=== PATIENT | female | born 1970 | race Caucasian/White ===

== ENCOUNTER 2021-07-04 17:30 | Emergency (ER) | payer SELFPAY ==
--- OUTSIDE RECORDS SUMMARY | 2021-07-04 17:32 | XMS REPORT | Continuity of Care Document ---
:1970 Author Organization [facility] t Address [address] [place] [address] [place] [id number] Care Team Providers Name Role Phone KRYSTIAN Attending Clinician Unavailable LAURA Attending Clinician Unavailable Problems This patient has no known problems. Allergies, Adverse Reactions, Alerts This patient has no known allergies or adverse reactions. Medications This patient has no known medications. Procedures This patient has no known procedures. Encounters Start End Encounter Admission Attending Care Care Encounter Source Date/Time Date/Time Type Type Clinicians Facility Department ID 2019-12-04 2019-12-05 Emergency DAVID BOLAND [facility] [id number] [place] 00:00:00 00:00:[address] 2019-11-23 2019-11-23 [id number] [place] 00:00:00 00:00:00 FRANCINE Mcnulty [facility] Results This patient has no known results.
[2021-07-04 19:05] LABS: SARS-COV-2 RT PCR NEGATIVE (NEGATIVE)
--- NOTE | 2021-07-04 19:45 | ER ---
Nurse's Notes [facility] Name: Martina Coello Age: 50 yrs Sex: Female : 1970 Arrival Date: 07/04/2021 Time: 17:31 Bed 12 Private MD: Diagnosis: Acute pharyngitis, unspecified Presentation: 07/04 17:52 Chief complaint: Patient states: Sinus congestion, cough, fever, sinus pressure and ww headache. Coronavirus screen: Vaccine status: Patient reports being unvaccinated. Client denies travel out of the [place] in the last 14 days. Ebola Screen: Patient denies travel to an Ebola-affected area in the 21 days before illness onset. Initial Sepsis Screen: Does the patient meet any 2 criteria? No. Patient's initial sepsis screen is negative. Does the patient have a suspected source of infection? No. Patient's initial sepsis screen is negative. Risk Assessment: Do you want to hurt yourself or someone else? Patient reports no desire to harm self or others. Onset of symptoms is unknown. 17:52 Method Of Arrival: Ambulatory ww 17:52 Acuity: MIKE 4 ww Triage Assessment: 17:54 Headache History: Denies prior headaches. General: Appears in no apparent distress. ww Behavior is calm, cooperative. Pain: Complains of pain in face and scalp Pain currently is 8 out of 10 on a pain scale. Pain began gradually, Also complains of nausea. EENT: Reports nasal congestion nasal discharge. Neuro: Level of Consciousness is awake, alert, obeys commands, Oriented to person, place, time, situation, Speech is normal. Cardiovascular: Capillary refill Patient's skin is warm and dry. Respiratory: Airway is patent Respiratory effort is even, unlabored, Respiratory pattern is regular, symmetrical. Derm: Skin is healthy with good turgor. 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 - Social history:: Smoking status: Patient reports the use of cigarette tobacco products, smokes one pack cigarettes per day. Screenin:57 Abuse screen: Denies threats or abuse. Denies injuries from another. Nutritional ww screening: No deficits noted. Tuberculosis screening: No symptoms or risk factors identified. Fall Risk None identified. Assessment: 18:09 General: Appears in no apparent distress. comfortable, Behavior is calm, cooperative, ld1 appropriate for age. Pain: Denies pain. Neuro: Level of Consciousness is awake, alert, obeys commands, Oriented to person, place, time, situation. Cardiovascular: No deficits noted. Respiratory: Airway is patent Respiratory effort is even, unlabored. GI: Abdomen is flat, non-distended. : No signs and/or symptoms were reported regarding the genitourinary system. EENT: No signs and/or symptoms were reported regarding the EENT system. Derm: No signs and/or symptoms reported regarding the dermatologic system. Musculoskeletal: No signs and/or symptoms reported regarding the musculoskeletal system. Vital Signs: 17:52 BP 126 / 93; Pulse 84; Resp 20; Temp 98.8(O); Pulse Ox 97% ; Weight 113.4 kg; Height 5 ww ft. 8 in. (172.72 cm); Pain 8/10; 18:09 BP 129 / 86; Pulse 79; Resp 18; Pulse Ox 98% on R/A; Pain 0/10; ld1 17:52 Body Mass Index 38.01 (113.40 kg, 172.72 cm) ww ED Course: 17:31 Patient arrived in ED. mr 17:54 Triage completed. ww 17:54 Arm band placed on right wrist. ww 18:06 Jian Yanes NP is PHCP. pm1 18:06 Shar Leija MD is Attending Physician. pm1 18:09 Jessica Parks, SOO is Primary Nurse. ld1 18:09 Patient has correct armband on for positive identification. Placed in gown. Bed in low ld1 position. Call light in reach. Side rails up X2. special systems technician on. Pulse ox on. NIBP on. Door closed. Noise minimized. Warm blanket given. 18:09 No provider procedures requiring assistance completed. ld1 18:10 COVID-19/FLU A+B (Document "Date of Onset" if Symptomatic) Sent. ld1 19:55 Patient did not have IV access during this emergency room visit. ld1 Administered Medications: 19:54 Drug: Decadron (dexamethasone) 10 mg Route: IM; Site: right deltoid; ld1 19:55 Drug: Tussionex Pennkinetic ER (chlorpheniramine-hydrocodone) Suspension 5 ml Route: PO;ld1 Outcome: 19:44 Discharge ordered by MD. pm1 19:55 Discharged to home ambulatory. ld1 19:55 Condition: stable 19:55 Discharge instructions given to patient, Instructed on discharge instructions, follow up and referral plans. Demonstrated understanding of instructions, follow-up care, medications, Prescriptions given X 3. 19:55 Patient left the ED. ld1 Signatures: Bethanie Martin mr FarzanaJian, CARBON PLANT GRINDER CARBON PLANT GRINDER pm1 Jessica Parks RN RN ld1 Stephanie Day RN RN ww
--- NOTE | 2021-07-04 19:45 | EDPHYS ---
Physician Documentation [facility] Name: Martina Coello Age: 50 yrs Sex: Female : 1970 Arrival Date: 07/04/2021 Time: 17:31 Bed 12 Private MD: ED Physician Shar Leija HPI: 07/04 19:43 This 50 yrs old Female presents to ER via Ambulatory with complaints of Sore throat, pm1 Sinus Congestion, Headache, Fever, Breathing Difficulty. 19:43 The patient presents with sore throat. The patient describes throat pain as raw, pm1 scratchy. Onset: The symptoms/episode began/occurred 3 day(s) ago. Severity of symptoms: in the emergency department the symptoms are actually worse. Modifying factors: The symptoms are alleviated by nothing, the symptoms are aggravated by swallowing, Patient's oral intake status: good unaware of sick contact. Associated signs and symptoms: Pertinent positives: cough, Sinus pressure and congestion, headache, fever, difficulty breathing through nose, Pertinent negatives diarrhea, vomiting. The patient has not experienced similar symptoms in the past. The patient has not recently seen a physician. 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 - Social history:: Smoking status: Patient reports the use of cigarette tobacco products, smokes one pack cigarettes per day. ROS: 19:43 Constitutional: Negative for fever, chills, and weight loss. pm1 19:43 Cardiovascular: Negative for chest pain, palpitations, and edema. 19:43 Abdomen/GI: Negative for abdominal pain, nausea, vomiting, diarrhea, and constipation, Back: Negative for injury and pain, MS/Extremity: Negative for injury and deformity, Skin: Negative for injury, rash, and discoloration. 19:43 ENT: Positive for sinus congestion, sinus pain, sore throat. 19:43 Respiratory: Positive for cough, Negative for shortness of breath. 19:43 Neuro: Positive for headache, Negative for numbness, tingling. 19:43 All other systems are negative. Exam: 19:43 Constitutional: This is a well developed, well nourished patient who is awake, alert, pm1 and in no acute distress. 19:43 Head/face: Sinus tenderness, that is mild, is located over the right frontal sinus and left frontal sinus. Vital Signs: 17:52 BP 126 / 93; Pulse 84; Resp 20; Temp 98.8(O); Pulse Ox 97% ; Weight 113.4 kg; Height 5 ww ft. 8 in. (172.72 cm); Pain 8/10; 18:09 BP 129 / 86; Pulse 79; Resp 18; Pulse Ox 98% on R/A; Pain 0/10; ld1 17:52 Body Mass Index 38.01 (113.40 kg, 172.72 cm) ww MDM: 18:06 Patient medically screened. pm1 19:43 Data reviewed: vital signs. Data interpreted: Pulse oximetry: on room air is 98 %. pm1 Interpretation: normal. Counseling: I had a detailed discussion with the patient and/or guardian regarding: the historical points, exam findings, and any diagnostic results supporting the discharge/admit diagnosis, lab results, the need for outpatient follow up, to return to the emergency department if symptoms worsen or persist or if there are any questions or concerns that arise at home. 07/04 17:58 Order name: COVID-19/FLU A+B (Document "Date of Onset" if Symptomatic); Complete Time: ww 19:37 Administered Medications: 19:54 Drug: Decadron (dexamethasone) 10 mg Route: IM; Site: right deltoid; ld1 19:55 Drug: Tussionex Pennkinetic ER (chlorpheniramine-hydrocodone) Suspension 5 ml Route: PO;ld1 Disposition Summary: 07/04/21 19:44 Discharge Ordered Location: Home pm1 Problem: new pm1 Symptoms: have improved pm1 Condition: Stable pm1 Diagnosis - Acute pharyngitis, unspecified pm1 Followup: pm1 - With: Emergency Department - When: As needed - Reason: Worsening of condition Followup: pm1 - With: Private Physician - When: 2 - 3 days - Reason: Recheck today's complaints, Continuance of care, Re-evaluation by your physician Discharge Instructions: - Discharge Summary Sheet pm1 - Pharyngitis pm1 Forms: - Medication Reconciliation Form pm1 - Thank You Letter pm1 - Antibiotic Education pm1 - Prescription Opioid Use pm1 Prescriptions: - Amoxicillin 875 mg Oral Tablet - take 1 tablet by ORAL route every 12 hours for 10 days; 20 tablet; Refills: 0, pm1 Product Selection Permitted - Medrol (Dorian) 4 mg Oral Tablets, Dose Pack - take 1 tablet by ORAL route as directed - follow package instructions; 1 pm1 packet; Refills: 0, Product Selection Permitted - Guaifenesin AC 10-100 mg/5 mL Oral Liquid - take 10 milliliters by ORAL route every 4 hours As needed; 240 milliliter; pm1 Refills: 0, Product Selection Permitted Addendum: 07/08/2021 18:12 Co-signature as Attending Physician, hSar boston a2 Signatures: Dispatcher [employer] Jian Mcarthur, INSPECTOR FLOOR SUB ASSEMBLY INSPECTOR FLOOR SUB ASSEMBLY pm1 Shar Leija MD MD ma2 Jessica Parks RN RN ld1 Stephanie Day RN RN ww
[2021-07-04] MEDS ORDERED: HYDROCODONE/CHLORPHEN 5 ML/OSYR ONE (19:52)
[2021-07-04] MEDS ORDERED: dexAMETHasone 10 MG/ML VIAL ONE (19:52)
[2021-07-04 20:06] VITALS: BP 129/86; O2SAT 98
[2021-07-04 20:08] VITALS: TEMP 98.8
== END 2021-07-04 19:55 | disposition home or self-care (01) ==
LOC: ER 17:30
DX: J02.9 Acute pharyngitis, unspecified (principal); R05.9 Cough, unspecified; R51.9 Headache, unspecified; Z20.822 Contact with and (suspected) exposure to COVID-19; I10 Essential (primary) hypertension; F17.210 Nicotine dependence, cigarettes, uncomplicated
CPT/HCPCS: 0240U; 96372; 99284; J1100

== ENCOUNTER 2022-04-16 18:21 | Observation (INO) | payer SELFPAY ==
--- OUTSIDE RECORDS SUMMARY | 2022-04-16 18:24 | XMS REPORT | Continuity of Care Document ---
:1970 Author Organization [facility] t Address [address] [place] [address] Care Team Providers Name Role Phone Jorge Bell DO Primary Care Physician [phone] DAVID BOLAND Attending Clinician Unavailable FRANCINE SANCHEZ Attending Clinician Unavailable Problems This patient has no known problems. Allergies, Adverse Reactions, Alerts This patient has no known allergies or adverse reactions. Social History Social Habit Start Date Stop Date Quantity Comments Source History [facility] History of tobacco Smokes tobacco [facility] use daily Hospital History [facility] Scientologist Alcohol Std Drinks Hospit al History SDOH 2019-12-05 2019-12-05 1 Scientologist Alcohol Frequency 00:00:00 00:00:00 [facility]osp[facility] Cigarettes smoked 2019-12-04 2019-12-04 [facility] current (pack per 00:00:00 00:00:00 Hospita l day) - Reported Tobacco use and 2019-12-04 2019-12-04 Smokeless tobacco [facility] exposure 00:00:00 00:00:00 non-user Hospital Alcohol intake 2019-12-04 2019-12-04 Current drinker [facility] 00:00:00 00:00:00 of alcohol Hospital (finding) Sex Ass[birth year] At [birth year] Scientologist 00:00:00 00:00:00 Hospital Smoking Status Start Date Stop Date Source Smokes tobacco daily 2019-12-04 00:00:00 [facility] Medications This patient has no known medications. Procedures This patient has no known procedures. Plan of Care Planned Activity Planned Date Details Comments Source Future Scheduled 2022-03-07 COVID-19 VACCINE (#1) [facility] Test 01:50:46 [code = COVID-19 VACCINE (#1)] Future Scheduled 2022-03-07 Pneumococcal Vaccine: [facility] Test 01:50:46 Pediatrics (0 to 5 Years) and At-Risk Patients (6 to 64 Years) (1 - PCV) [code = Pneumococcal Vaccine: Pediatrics (0 to 5 Years) and At-Risk Patients (6 to 64 Years) (1 - PCV)] Future Scheduled 2022-03-07 Hepatitis C screening [facility] Test 01:50:46 (procedure) [code = 970419980] Future Scheduled 2022-03-07 Screening for [facility] Test 01:50:46 malignant neoplasm of cervix (procedure) [code = 132204203] Future Scheduled 2022-03-07 BREAST CANCER [facility] Test 01:50:46 SCREENING [code = BREAST CANCER SCREENING] Future Scheduled 2022-03-07 COLONOSCOPY SCREENING [facility] Test 01:50:46 [code = COLONOSCOPY SCREENING] Future Scheduled 2022-03-07 INFLUENZA VACCINE Method [facility] Test 01:50:46 [code = INFLUENZA VACCINE] Encounters Start End Encounter Admission Attending Care Care Encounter Source Date/Time Date/Time Type Type Clinicians Facility Department ID 2019-12-04 2019-12-05 Emergency DAVID BOLAND [facility] [id number] [place] 00:00:00 00:00:[address] 2019-11-23 2019-11-23 Emergency LAURA, [facility] [id number] [place] 00:00:00 00:00:00 FRANCINE Mcnulty [facility] Results This patient has no known results.
[2022-04-16] MEDS ORDERED: LEVALBUTEROL 1.25 MG/3 ML NEB ONE (18:51)
[2022-04-16] MEDS ORDERED: METHYLPREDNISOLONE 125 MG INJ ONE (18:51)
[2022-04-16 19:09] LABS: Absolute Lymphocytes (CBC) 2.6 K/uL (0.7-4.9); Lymphocytes % 23.1 % (15.3-44.8); MPV 8.6 fL (7.6-11.3); RBC Red Blood Cell Count 4.83 M/uL (3.86-4.86)
[2022-04-16 19:19] LABS: Protime INR 0.93
[2022-04-16] MEDS ORDERED: MAGNESIUM SULFATE 1 gm IVPB 1 GM/100 ML BAG IV ONE (19:22)
[2022-04-16 19:32] LABS: ALT/SGPT 59 U/L (13-56); Albumin 3.2 g/dL (3.4-5.0); Alkaline Phosphatase 115 U/L (45-117); BUN Blood Urea Nitrogen 14 mg/dL (7-18); Bicarbonate 30 mmol/L (21-32); Bilirubin Total 0.3 mg/dL (0.2-1.0); Glomerular Filtration Rate 70 ml/min (=/>90); Glucose Level 132 mg/dL (74-106); NT PRO-BNP 48 pg/mL (<125); Potassium 3.9 mmol/L (3.5-5.1); Protein, Total 7.8 g/dL (6.4-8.2); Sodium Level 138 mmol/L (136-145); Troponin High Sensitivity 4.9 pg/mL (<58.9)
[2022-04-16 19:33] LABS: AST/SGOT 39 U/L (15-37); Bilirubin Direct < 0.1 mg/dL (0-0.2); Magnesium 2.2 mg/dL (1.6-2.4)
--- NOTE | 2022-04-16 20:19 | RAD REPORT ---
EXAM DESCRIPTION: Nannette Single View04/16/2022 7:27 pm CLINICAL HISTORY: Chest pain COMPARISON: none FINDINGS: The lungs appear clear of acute infiltrate. The heart is normal size IMPRESSION: No acute abnormalities displayed
--- NOTE | 2022-04-16 20:19 | RAD REPORT ---
EXAM DESCRIPTION: CT - Chest For Pe Angio - 04/16/2022 7:59 pm CLINICAL HISTORY: Chest pain COMPARISON: None. TECHNIQUE: Dynamically enhanced axial 3 mm thick images of the chest were obtained during administra tion of 100 mL Isovue 370 IV contrast. Coronal and oblique reconstruction images were generated and r eviewed. Exam utilizes a protocol for optimal evaluation of pulmonary arterial tree. Maximum intensity projections 3D imaging was utilized All CT scans are performed using dose optimization technique as appropriate and may include automated exposure control or mA/KV adjustment according to patient size. FINDINGS: A pulmonary embolus is not seen. A thoracic aortic aneurysm is not noted. A pleural effusion is not seen. A pericardial effusion is not seen. A lung consolidation is not present. IMPRESSION: Negative for a pulmonary embolism.
--- NOTE | 2022-04-16 20:25 | ER ---
Nurse's Notes [facility] Name: Martina Coello Age: 51 yrs Sex: Female : 1970 Arrival Date: 04/16/2022 Time: 18:22 Bed 5 Private MD: Diagnosis: COPD/ Chronic obstructive pulmonary disease with (acute) exacerbation;Hypoxemia Presentation: 04/16 18:25 Chief complaint: Cough and congestion that started after cleaning with bleach 2 weeks, hb pain with breathing and SOB today. SPO2 88-92 on RA in triage. Coronavirus screen: Client presents with at least one sign or symptom that may indicate coronavirus-19. Provider contacted for isolation considerations. Ebola Screen: No symptoms or risks identified at this time. Risk Assessment: Do you want to hurt yourself or someone else? Patient reports no desire to harm self or others. Onset of symptoms was April 03, 2022. 18:25 Method Of Arrival: Ambulatory hb 18:25 Acuity: MIKE 2 hb 22:21 Initial Sepsis Screen: Does the patient meet any 2 criteria? No. Patient's initial ke1 sepsis screen is negative. Does the patient have a suspected source of infection? No. Patient's initial sepsis screen is negative. Triage Assessment: 18:30 General: Appears in no apparent distress. obese, Behavior is cooperative, appropriate bp for age, anxious. Pain: Denies pain. EENT: No deficits noted. Neuro: No deficits noted. Cardiovascular: No deficits noted. Respiratory: Reports shortness of breath Onset: The symptoms/episode began/occurred today, the patient has mild shortness of breath. GI: No signs and/or symptoms were reported involving the gastrointestinal system. : No signs and/or symptoms were reported regarding the genitourinary system. Derm: No deficits noted. Musculoskeletal: No deficits noted. Historical: - Allergies: 18:28 No Known Allergies; hb - PMHx: 18:28 Hypertensive disorder; hb - PSHx: 18:28 section; Cholecystectomy; hb - Immunization history:: Adult Immunizations up to date. - Social history:: Smoking status: Patient denies any tobacco usage or history of. Screenin:30 [facility] ED Fall Risk Assessment (Adult) History of falling in the last 3 months, bp including since admission No falls in past 3 months (0 pts). Abuse screen: Denies threats or abuse. Denies injuries from another. Nutritional screening: No deficits noted. Tuberculosis screening: No symptoms or risk factors identified. Assessment: 08:50 General: Appears uncomfortable, ill, Behavior is calm, cooperative, appropriate for ll1 age. Pain: Denies pain. Cardiovascular: Rhythm is regular. Respiratory: Reports shortness of breath cough that is labored breathing Airway is patent Trachea midline Respiratory effort is even, labored, Respiratory pattern is symmetrical, tachypnea. 18:30 General: SEE TRIAGE NOTE. bp 21:24 General: Behavior is anxious, . as6 21:52 General: attempted to call report . as6 Vital Signs: 18:25 BP 163 / 90; Pulse 93; Resp 20; Temp 97.8; Pulse Ox 88% on R/A; Weight 113.4 kg; Height hb 5 ft. 7 in. (170.18 cm); Pain 7/10; 20:20 BP 144 / 65; Pulse 87; Resp 27 S; Temp 98.3(O); Pulse Ox 90% on 5 lpm NC; as6 21:27 BP 157 / 63; Pulse 93; Resp 22 S; Pulse Ox 89% on 5 lpm NC; as6 18:25 Body Mass Index 39.16 (113.40 kg, 170.18 cm) hb ED Course: 18:22 Patient arrived in ED. am2 18:28 Nick Acevedo PA is PHCP. [facility] 18:28 Jose Manuel Rodriguez MD is Attending Physician. jmm 18:28 Triage completed. hb 18:28 Arm band placed on. hb 18:30 Patient has correct armband on for positive identification. bp 18:41 Chente Bustos, RN is Primary Nurse. bp 18:52 Inserted saline lock: 22 gauge in right antecubital area, using aseptic technique. ll1 Blood collected. 19:29 XRAY Chest (1 view) In Process Unspecified. EDMS 19:45 COVID swab sent to lab. Flu and/or RSV swab sent to lab. wm 19:47 COVID-19/FLU A+B/RSV Sent. wm 20:01 CT Chest For PE Angio In Process Unspecified. EDMS 20:23 Jorge Perales MD is Hospitalizing Provider. cp 21:37 Primary Nurse role handed off by Chente Bustos, RN wm 21:47 Ebrottie, Kouassi, SOO is Primary Nurse. ke1 22:20 No provider procedures requiring assistance completed. Patient admitted, IV remains in ke1 place. Administered Medications: 18:52 Drug: Xopenex (levalbuterol) (3) 1.25 mg Route: Inhalation; [facility] 18:52 Drug: SOLU-Medrol (methylPrednisoLONE) 125 mg Route: IVP; Site: right antecubital; 1 19:23 Drug: Magnesium Sulfate 1 grams Route: IVPB; Infused Over: 1 hrs; Site: right ke1 antecubital; 20:47 Drug: Albuterol - atroVENT (ipratropium) (3:1) (2.5 mg - 0.5 mg) 3 ml Route: Nebulizer; [facility] Medication: 18:30 VIS not applicable for this client. bp Outcome: 20:24 Decision to Hospitalize by Provider. cp 22:21 Admitted to Med/surg accompanied by tech. ke1 22:21 Condition: good 22:21 Instructed on the need for admit. 22:29 Patient left the ED. ke1 Signatures: Dispatcher [employer] EDMS Nick Acevedo PA PA jmm Page, Corey, PA PA cp Crystal Guzman RN RN Melanie Barlow am2 Chente Bustos RN RN bp Godfrey Garcia RN RN 1 Dayanara Ortega Cuong Patterson RN RN as6 Kranthi Jaeger RN RN [facility]
--- NOTE | 2022-04-16 20:25 | EDPHYS ---
Physician Documentation [facility] Name: Martina Coello Age: 51 yrs Sex: Female : 1970 Arrival Date: 04/16/2022 Time: 18:22 Bed 5 Private MD: ED Physician Jose Manuel Rodriguez HPI: 04/16 18:28 This 51 yrs old Female presents to ER via Ambulatory with complaints of Breathing jmm Difficulty, Chest Congestion. 18:28 The patient has shortness of breath at rest. Onset: The symptoms/episode began/occurred jmm gradually, 2 week(s) ago. Duration: The symptoms are continuous. The patient's shortness of breath is aggravated by nothing, is alleviated by nothing. Associated signs and symptoms: Pertinent negatives: fever. Is a 51-year-old female with history of hypertension the presents emerged department with progressively worsening shortness of breath over the past 2 weeks. Patient states symptoms initially began after inhaling bleach. Patient does smoke cigarettes. Did not smoke today.. Historical: - Allergies: 18:28 No Known Allergies; hb - PMHx: 18:28 Hypertensive disorder; hb - PSHx: 18:28 section; Cholecystectomy; hb - Immunization history:: Adult Immunizations up to date. - Social history:: Smoking status: Patient denies any tobacco usage or history of. ROS: 18:28 Constitutional: Negative for fever, chills, and weight loss, Cardiovascular: Negative jmm for chest pain, palpitations, and edema. 18:28 Respiratory: Positive for shortness of breath, wheezing. 18:28 All other systems are negative. Exam: 18:28 Constitutional: This is a well developed, well nourished patient who is awake, alert, jmm and in no acute distress. Head/Face: atraumatic. Eyes: EOMI, no conjunctival erythema appreciated ENT: Moist Mucus Membranes Neck: Trachea midline, Supple Chest/axilla: Normal chest wall appearance and motion. Cardiovascular: Regular rate and rhythm. No edema appreciated 18:28 Back: Normal ROM Skin: General appearance color normal MS/ Extremity: Moves all extremities, no obvious deformities appreciated, no edema noted to the lower extremities Neuro: Awake and alert Psych: Behavior is normal, Mood is normal, Patient is cooperative and pleasant 18:28 Respiratory: moderate respiratory distress is noted, Respirations: labored breathing, that is moderate, Breath sounds: wheezing: that is moderate. Vital Signs: 18:25 BP 163 / 90; Pulse 93; Resp 20; Temp 97.8; Pulse Ox 88% on R/A; Weight 113.4 kg; Height hb 5 ft. 7 in. (170.18 cm); Pain 7/10; 20:20 BP 144 / 65; Pulse 87; Resp 27 S; Temp 98.3(O); Pulse Ox 90% on 5 lpm NC; as6 21:27 BP 157 / 63; Pulse 93; Resp 22 S; Pulse Ox 89% on 5 lpm NC; as6 18:25 Body Mass Index 39.16 (113.40 kg, 170.18 cm) hb MDM: 18:28 Patient medically screened. [facility] 04/16 18:29 Order name: Basic Metabolic Panel; Complete Time: 19:38 [facility] 04/16 18:29 Order name: CBC with Diff; Complete Time: 19:38 [facility] 04/16 18:29 Order name: LFT's; Complete Time: 19:38 [facility] 04/16 18:29 Order name: Magnesium; Complete Time: 19:38 [facility] 04/16 18:29 Order name: NT PRO-BNP; Complete Time: 19:38 [facility] 04/16 18:29 Order name: PT-INR; Complete Time: 19:38 [facility] 04/16 18:29 Order name: Troponin HS; Complete Time: 19:38 [facility] 04/16 18:29 Order name: XRAY Chest (1 view); Complete Time: 20:23 [facility] 04/16 18:29 Order name: CT Chest For PE Angio; Complete Time: 20:23 [facility] 04/16 18:59 Order name: COVID-19/FLU A+B/RSV; Complete Time: 20:35 [facility] 04/16 20:24 Order name: ABG: vbg; Complete Time: 21:18 [facility] 04/16 18:29 Order name: EKG; Complete Time: 18:29 [facility] 04/16 18:29 Order name: Cardiac monitoring; Complete Time: 18:55 [facility] 04/16 18:29 Order name: EKG - Nurse/Tech; Complete Time: 18:55 [facility] 04/16 18:29 Order name: IV Saline Lock; Complete Time: 18:40 [facility] 04/16 18:29 Order name: Labs collected and sent; Complete Time: 18:40 [facility] 04/16 18:29 Order name: O2 Per Protocol; Complete Time: 18:40 [facility] 04/16 18:29 Order name: O2 Sat Monitoring; Complete Time: 18:40 [facility] 04/16 19:38 Order name: O2 Per Protocol; Complete Time: 19:51 [facility] Administered Medications: 18:52 Drug: Xopenex (levalbuterol) (3) 1.25 mg Route: Inhalation; 1 18:52 Drug: SOLU-Medrol (methylPrednisoLONE) 125 mg Route: IVP; Site: right antecubital; 1 19:23 Drug: Magnesium Sulfate 1 grams Route: IVPB; Infused Over: 1 hrs; Site: right ke1 antecubital; 20:47 Drug: Albuterol - atroVENT (ipratropium) (3:1) (2.5 mg - 0.5 mg) 3 ml Route: Nebulizer; ke1 Disposition Summary: 04/16/22 20:24 Hospitalization Ordered Hospitalization Status: Inpatient Admission cp Provider: Jorge Perales cp Location: Telemetry/MedSurg (Inpatient) cp Condition: Stable cp Problem: an acute exacerbation cp Symptoms: have improved cp Bed/Room Type: Standard cp Room Assignment: 415(04/16/22 21:46) cg Diagnosis - COPD/ Chronic obstructive pulmonary disease with (acute) exacerbation cp - Hypoxemia cp Forms: - Medication Reconciliation Form cp - SBAR form cp Signatures: Dispatcher [employer] EDNick Baker PA PA jmm Attema, Lee, WELFARE ADVISER-C WELFARE ADVISER-Cla1 Miguel Peraza PA PA cp Lavern Sweet RN RN cg Crystal Guzman RN RN hb Peltier, Brian, RN RN bp Lewis, Lynsay, RN RN ll1 Kranthi Jaeger RN RN ke1 Corrections: (The following items were deleted from the chart) 21:46 20:24 cp cg
[2022-04-16 20:28] LABS: SARS-COV-2 RT PCR NEGATIVE (NEGATIVE)
[2022-04-16] MEDS ORDERED: ALBUTEROL 2.5 MG/3 ML NEB SOL ONE (20:45)
[2022-04-16] MEDS ORDERED: IPRATROPIUM BROM 0.5MG/2.5ML ONE (20:45)
[2022-04-16 20:46] LABS: Arterial Blood Carboxyhemoglob 2.2 % (0-1.5); Blood Gas Oxyhemoglobin 77.2 % (94-97); Blood O2 Saturation 80.3 % (92-98.5)
--- NOTE | 2022-04-16 20:56 | P.HP ---
Certification for Inpatient Patient admitted to: Inpatient With expected LOS: >2 Midnights Patient will require the following post-hospital care: None Practitioner: I am a practitioner with admitting privileges, knowledge of patient current condition, hospital course, and medical plan of care. Services: Services provided to patient in accordance with Admission requirements found in Title 42 Section 412.3 of the Code of Federal Regulations <Juan Olivarez - Last Filed: 04/16/22 20:50> Patient History Date of Service: 04/16/22 Reason for admission: Respiratory failure History of Present Illness: 41-year-old female with no significant past medical history presents the emergency department for 2 weeks of worsening dyspnea, she reports this began after being exposed to bleach in an enclosed room with a ventilation. She does admit to smoking a pack per day has never been diagnosed with COPD or any lung disease. She was noted to be hypoxic down to 84% on room air during her stay in the emergency department adventitious lung sounds with expiratory wheezing, rhonchi. CTA was performed of the chest which was negative for any acute findings. Labs were remarkable for mild leukocytosis white blood cell count 11.2 ABG was performed which showed a pH of 7.43 and a PCO2 of 45.8. He is currently saturating 91 to 92% on 5 L per nasal cannula after receiving 2 rounds of nebulizer treatments, IV steroids. Will admit for further evaluation and management of hypercapnic/hypoxic respiratory failure, suspected COPD with exacerbation - Past Medical/Surgical History -: None -: -: Cholecystectomy Psychosocial/ Personal History: Patient is unemployed, lives at home with her - Family History Mother -: Diabetes - Social History Smoking Status: Current every day smoker Counseled patient to stop smoking for: less than 10 minutes Smoking therapy provided: No (Pt declined) Alcohol use: No CD- Drugs: No Caffeine use: No Place of Residence: Home <Juan Olivarez - Last Filed: 04/16/22 20:50> Date of Service: 04/17/22 <Jorge Perales - Last Filed: 04/17/22 12:42> Review of Systems 10-point ROS is otherwise unremarkable Respiratory: Cough, Shortness of Breath, SOB with Excertion, Sputum, Wheezing <Juan Olivarez - Last Filed: 04/16/22 20:50> Physical Examination - Physical Exam General: Alert, In no apparent distress, Oriented x3 HEENT: Atraumatic, PERRLA, Mucous membr. moist/pink, EOMI, Sclerae nonicteric Neck: Supple, 2+ carotid pulse no bruit, No LAD, Without JVD or thyroid abnormality Respiratory: Expiratory wheezes, Rhonchi/gurgles Cardiovascular: Regular rate/rhythm, Normal S1 S2 Capillary refill: <2 Seconds Gastrointestinal: Normal bowel sounds, No tenderness Musculoskeletal: No tenderness Integumentary: No rashes Neurological: Normal speech, Normal strength at 5/5 x4 extr, Normal tone, Normal affect - Studies Laboratory Data (last 24 hrs) 04/16/22 18:50: PT 10.2, INR 0.93 04/16/22 18:50: WBC 11.20 H, Hgb 14.1, Hct 43.0, Plt Count 260 04/16/22 18:50: Sodium 138, Potassium 3.9, BUN 14, Creatinine 0.99, Glucose 132 H, Magnesium 2.2, Total Bilirubin 0.3, AST 39 H, ALT 59 H, Alkaline Phosphatase 115 <Juan Olivarez - Last Filed: 04/16/22 20:50> - Studies Laboratory Data (last 24 hrs) 04/16/22 18:50: PT 10.2, INR 0.93 04/16/22 18:50: WBC 11.20 H, Hgb 14.1, Hct 43.0, Plt Count 260 04/16/22 18:50: Sodium 138, Potassium 3.9, BUN 14, Creatinine 0.99, Glucose 132 H, Magnesium 2.2, Total Bilirubin 0.3, AST 39 H, ALT 59 H, Alkaline Phosphatase 115 <Jorge Perales - Last Filed: 04/17/22 12:42> Assessment and Plan - Plan Assessment: Acute hypoxic/hypercapnic respiratory failure suspect underlying COPD with exacerbation Obesity tobacco abuse Plan: Acute hypoxic/hypercapnic respiratory failure suspect underlying COPD with exacerbation: No previous diagnosis of COPD, patient reports 2 weeks of worsening dyspnea, increasing sputum production, cough. He has expiratory wheezing on exam and is hypoxic, CT was negative for infectious causes or pulmonary embolism. Continue treatment with steroids, nebulizer treatments, antitussive agents. Pulmonology consulted. Obesity: Counseled on lifestyle changes tobacco abuse: Counseled on need for tobacco cessation, offered nicoderm patch, declined. DVT PPX: Lovenox Code status: Full Discharge Plan: Home Plan to discharge in: 48 Hours - Advance Directives Does patient have a Living Will: No Does patient have a Durable POA for Healthcare: No - Code Status/Comfort Care Code Status Assessed: Yes (Full code) Critical Care: No Time Spent Managing Pts Care (In Minutes): 55 <Juan Olivarez - Last Filed: 04/16/22 20:50> Physician Review: Patient Assessed, Agree with Above Assessment and Plan <Jorge Perales - Last Filed: 04/17/22 12:42>
[2022-04-16] MEDS ORDERED: BENZONATATE 100 MG CAP PO PRN (22:22)
[2022-04-16] MEDS ORDERED: IPRATROPIUM BROM 0.5MG/2.5ML NEB PRN (22:22)
[2022-04-16] MEDS ORDERED: ONDANSETRON 4 MG/2 ML VIAL IV PRN (22:22)
[2022-04-16] MEDS ORDERED: ALBUTEROL 2.5 MG/3 ML NEB SOL NEB PRN (22:22)
[2022-04-16] MEDS ORDERED: ACETAMINOPHEN 500 MG TAB PO PRN (22:22)
[2022-04-17 00:54] VITALS: BMI 44.6
[2022-04-17] MEDS ORDERED: IPRATROPIUM BROM 0.5MG/2.5ML NEB PRN (02:38)
[2022-04-17] MEDS ORDERED: ALBUTEROL 2.5 MG/3 ML NEB SOL NEB PRN (02:38)
[2022-04-17 05:12] LABS: Magnesium 2.4 mg/dL (1.6-2.4); Thyroid Stimulating Hormone 0.256 uIU/mL (0.358-3.740)
[2022-04-17] MEDS ORDERED: predniSONE 20 MG TAB PO SCH (09:00)
[2022-04-17] MEDS ORDERED: ENOXAPARIN 40 MG/0.4 ML SQ SCH (09:00)
[2022-04-17] MEDS ORDERED: DULERA 200/5 (MOMETASONE/FORMOTEROL) INHALER IH SCH (09:00)
[2022-04-17] MEDS ORDERED: FAMOTIDINE 20 MG TAB PO PRN (09:00)
[2022-04-17 09:45] VITALS: O2SAT 95
--- NOTE | 2022-04-17 10:51 | P.CNS ---
Date of Consult: 04/17/22 Reason for Consult: Respiratory distress Chief Complaint: Respiratory distress History of Present Illness: Patient is 51 years of age active smoker currently she was cleaning a bathroom maybe have been exposed to bleach became acutely short of breath with coughing going on for about 2 weeks came into the emergency room was hypoxic she is feeling a lot better wants to go home no prior history of COPD denies any shortness of breath on exertion this is the first episode that she has had Allergies No Known Allergies Allergy (Unverified 04/16/22 22:22) - Past Medical/Surgical History Diabetic: No -: None -: -: Cholecystectomy Psychosocial/ Personal History: Patient is unemployed, lives at home with her - Family History Mother Medical History: Diabetes - Social History Smoking Status: Current every day smoker Alcohol use: No CD- Drugs: No Caffeine use: No Place of Residence: Home Review of Systems 10-point ROS is otherwise unremarkable Physical Examination Temp Pulse Resp BP Pulse Ox 98.4 F 92 H 18 137/86 90 L 04/17/22 08:00 04/17/22 08:00 04/17/22 08:00 04/17/22 08:00 04/17/22 08:00 General: Alert, In no apparent distress, Oriented x3 Respiratory: Expiratory wheezes (Wheezing left greater than right) Cardiovascular: No edema, Regular rate/rhythm, Normal S1 S2 Gastrointestinal: Normal bowel sounds, Soft and benign Musculoskeletal: No clubbing, No swelling Laboratory Data (last 24 hrs) 04/16/22 18:50: PT 10.2, INR 0.93 04/16/22 18:50: WBC 11.20 H, Hgb 14.1, Hct 43.0, Plt Count 260 04/16/22 18:50: Sodium 138, Potassium 3.9, BUN 14, Creatinine 0.99, Glucose 132 H, Magnesium 2.2, Total Bilirubin 0.3, AST 39 H, ALT 59 H, Alkaline Phosphatase 115 - Problems (1) Shortness of breath Current Visit: Yes Status: Acute Plan: Patient is 51 years of age active smoker was exposed to some cleaning materials developed acute shortness of breath for the past 2 days continues to smoke about 1 pack every 3 days admitted with worsening dyspnea hypoxemia white count was only mildly elevated we will check room air pulse ox is doing much better plan to discharge home on a bronchodilator low-dose steroid follow-up with me in 2 weeks she is counseled not to smoke outpatient pulmonary function testing
--- NOTE | 2022-04-17 12:46 | P.DS ---
Admission Date: 04/16/22 Discharge Date: 04/17/22 Reason for Admission: Respiratory distress Consultations: 1. Pulmonary Medicine Hospital Course: DIAGNOSES: # Acute Hypoxic Respiratory Failure suspect secondary to Undiagnosed Chronic Obstructive Pulmonary Disease with Acute Exacerbation (resolved) # SIRS Criteria (Tachycardia, Tachypnea) secondary to above - no evidence of infection (resolved) # Tobacco Use Disorder # Morbid Obesity - BMI 44.7 kg/m2 # Mildly Elevated Liver Enzymes # Subclinical Hyperthyroidism HOSPITAL COURSE: Ms. Martina Coello is a pleasant 51 year old female with no reported past medical history who was admitted to the [facility] on 04/16/2022 for shortness of breath and hypoxia. She was admitted to the Medicine service. Upon further evaluation, she was found to have diffuse expiratory wheezing with an SpO2 of 84% on room air. Upon further evaluation, her ABG revealed a pH of 7.43, a PCO2 of 45.8, and a PO2 of 43.8. Her chest x-ray revealed, "no acute abnormalities displayed." Her CT chest angiogram, "negative for a pulmonary embolism." Pulmonary Medicine was consulted and she was evaluated by Dr. Gilmore. Over her hospitalization, her symptoms improved significantly and she was weaned off of oxygen. She was monitored on oxygen and maintain adequate SpO2 readings on room air at rest and with ambulation. She states that she would like to be discharged home. Dr. Gilmore has cleared her for discharge home with outpatient follow-up. On 04/17/2022, she was seen on rounds and deemed medically stable for discharge. She was discharged with instructions to schedule follow-up appointments with her PCP and with Pulmonology (Dr. Gilmore). She was provided prescriptions for benzonatate, Dulera, and prednisone. She was provided with extensive counseling regarding tobacco cessation. She was given the opportunity to ask questions and reported no further questions. Furthermore, all questions were answered to the best of my ability. A copy of this discharge summary will be sent to the above providers to facilitate continuity of care. Today, I personally spent 25 minutes on her case, of which greater than 50% of the time was spent in patient education, counseling, and coordination of care as described above. Vital Signs/Physical Exam: Temp Pulse Resp BP Pulse Ox 98.4 F 92 H 18 137/86 95 04/17/22 08:00 04/17/22 08:00 04/17/22 08:00 04/17/22 08:00 04/17/22 09:15 General: Alert, In no apparent distress, Oriented x3 HEENT: Atraumatic, Mucous membr. moist/pink, EOMI, Sclerae nonicteric Neck: JVD not distended Respiratory: Clear to auscultation bilaterally, Normal air movement Cardiovascular: No edema, Regular rate/rhythm, Normal S1 S2, No gallops, No rubs, No murmurs Gastrointestinal: Normal bowel sounds, Soft and benign, Non-distended Musculoskeletal: No clubbing Integumentary: No rashes Neurological: Normal speech, Cranial nerves 3-12 intact, Normal affect Laboratory Data at Discharge: WBC 11.20 K/uL (4.3-10.9) H 04/16/22 18:50 Hgb 14.1 g/dL (12.0-15.0) 04/16/22 18:50 Hct 43.0 % (36.0-45.0) 04/16/22 18:50 Plt Count 260 K/uL (152-406) 04/16/22 18:50 PT 10.2 SECONDS (9.5-12.5) 04/16/22 18:50 INR 0.93 04/16/22 18:50 Sodium 136 mmol/L (136-145) 04/17/22 04:16 Potassium 4.0 mmol/L (3.5-5.1) 04/17/22 04:16 BUN 15 mg/dL (7-18) 04/17/22 04:16 Creatinine 0.96 mg/dL (0.55-1.02) 04/17/22 04:16 Glucose 269 mg/dL (74-106) H 04/17/22 04:16 Magnesium 2.4 mg/dL (1.6-2.4) 04/17/22 04:16 Total Bilirubin 0.3 mg/dL (0.2-1.0) 04/16/22 18:50 AST 39 U/L (15-37) H 04/16/22 18:50 ALT 59 U/L (13-56) H 04/16/22 18:50 Alkaline Phosphatase 115 U/L (45-117) 04/16/22 18:50 Home Medications: Benzonatate [Tessalon Perle*] 100 mg PO TID PRN 7 Days #20 cap 04/17/22 Mometasone/Formoterol [Dulera 200 Mcg-5 Mcg Inhaler] 13 gm IH BID #1 inhaler 04/17/22 predniSONE [Prednisone*] 20 mg PO BID 5 Days #10 tab 04/17/22 New Medications: Mometasone/Formoterol [Dulera 200 Mcg-5 Mcg Inhaler] 13 gm IH BID #1 inhaler predniSONE [Prednisone*] 20 mg PO BID 5 Days #10 tab Benzonatate [Tessalon Perle*] 100 mg PO TID PRN 7 Days #20 cap PRN Reason: Cough Physician Discharge Instructions: 1. Please call and schedule a follow-up appointment with your PCP in 3-5 days - Your thyroid tests and liver enzymes were slightly abnormal, please discuss this with your PCP for further evaluation 2. Please call and schedule a follow-up appointment with Pulmonology (Dr. Gilmore) in 5-7 days Diet: AHA Activity: Ad júnior Followup: Carroll Gilmore MD [ACTIVE - CAN ADMIT] - Time spent managing pt's care (in minutes): 25
[2022-04-17 14:09] VITALS: BP 154/88; TEMP 97.3
== END 2022-04-17 14:47 | disposition home or self-care (01) ==
LOC: ER 18:21 → INTOOBSV 20:37 → ERHOLD 20:37 → 4TH 21:48
PROVIDERS: ADMIT Internal Medicine; ATTEND Internal Medicine
DX: J96.91 Respiratory failure, unspecified with hypoxia (principal); R65.10 Systemic inflammatory response syndrome (SIRS) of non-infectious origin without acute organ dysfunction; J98.4 Other disorders of lung; F17.210 Nicotine dependence, cigarettes, uncomplicated; E66.01 Morbid (severe) obesity due to excess calories; E05.90 Thyrotoxicosis, unspecified without thyrotoxic crisis or storm; R79.89 Other specified abnormal findings of blood chemistry; Z68.41 Body mass index [BMI] 40.0-44.9, adult; Z20.822 Contact with and (suspected) exposure to COVID-19
CPT/HCPCS: 0241U; 36415; 71045; 71275; 80048; 80076; 82805; 83735; 83880; 84439; 84443; 84484; 85025; 85610; 93005; 94640; 94760; 96374; 96375; 99285; G0378; J1650; J2930; J3475; J3535; J7512; J7613; J7614; J7644; Q9967